=== PATIENT | female | born 1945 | race Caucasian/White ===

== ENCOUNTER 2019-10-30 19:21 | Observation (INO) | payer OTHER, SELFPAY ==
[2019-10-30] VITALS (7 sets, daily range): BP systolic 134–158; BP diastolic 56–118; PULSE 84–94; RESP 16–24; TEMP 36.6–36.7; O2SAT 93–99; BMI 32.4
--- NOTE | ~2019-10-30 | MR_ITS ---
EXAMINATION: MR brain/brain stem wo/w con DATE: 10/31/2019 13:28 INDICATION: Left-sided weakness TECHNIQUE: Magnetic resonance imaging (MRI) of the brain and brainstem was performed without and with intravenous contrast. Sequences included sagittal and axial T1-weighted SE, axial diffusion-weighted FS EPI ASSET, axial T2*-weighted GRE, axial T2-weighted FLAIR Propeller, and axial T2-weighted Prope ller. Postcontrast axial and coronal T1-weighted SE was obtained. Apparent diffusion coefficient (ADC ) maps were created. COMPARISON: None. CONTRAST: Multihance, 15 cc FINDINGS: There are no areas of restricted diffusion to suggest acute infarction. There is no acute h emorrhage seen on the T2*, a hemosiderin sensitive sequence. The ventricles are normal in size. There are no extra-axial collections. Flow voids are seen in the cerebral arteries on the T2-weighted sequ ences consistent with their expected patency. Visualized orbits and soft tissues are unremarkable. Th ere are scattered areas of nonspecific increased T2-weighted signal intensity in the cerebral white m atter. There are no areas of abnormal enhancement on the post contrast images. IMPRESSION: 1. No acute findings. 2. Age related findings. Reviewed, dictated and finalized at location A.
--- NOTE | ~2019-10-30 | CT_ITS ---
EXAMINATION: CTA brain carotid EXAM DATE: 10/30/2019 22:03 INDICATION: Left hemiparesis, left facial droop. TECHNIQUE: Spiral CTA of the carotid arteries was performed with intravenous injection 100 cc of Om nipaque 350. Axial, coronal, sagittal reformatted images reviewed. Additional reformatted images cre ated on dedicated 3-D workstation. NASCET comparable standard used to assess the degree of arterial stenosis. Spiral CT angiogram cerebral arteries performed with the same intravenous injection of con trast. Source images of the brain CTA transferred to dedicated workstation for 3-D rotational image c reation. Coronal, sagittal maximum intensity pixel images also reviewed. The dose-length product (D LP) for this examination was 1102.26 mGy-cm. The exposure was tailored according to patient size, a nd iterative reconstruction (ASIR) was used as additional dose reduction technique. Correlation is ma de to noncontrast head CT same date. FINDINGS: There is mild bilateral carotid bulb plaque with 0% stenosis bilaterally. Mild bilateral ca rotid siphon plaque without stenosis. The vertebral arteries are codominant. There is no carotid or vertebral basilar arterial dissection or fibromuscular dysplasia. There are no cerebral artery aneury sms. There is symmetric cerebral artery arborization. The sagittal, transverse and sigmoid sinuses en bolivar normally, no venous sinus thrombosis. Internal cerebral veins also enhance normally. IMPRESSION: 1. No cervical arterial dissection or cerebral artery aneurysm. 2. Mild bilateral carotid bulb plaque with 0% stenosis bilaterally. Reviewed, dictated and finalized at location A.
--- NOTE | ~2019-10-30 | XR_ITS ---
EXAMINATION: XR chest 1V portable EXAM DATE: 10/30/2019 20:13 INDICATION: Left-sided hemiparesis. Fell off couch. TECHNIQUE: Portable AP frontal chest x-ray was obtained. Comparison is made to prior examination from 10/30/2018. FINDINGS: The lungs are clear. There are no pleural effusions. Cardiac silhouette is prominent but magnified on this AP technique. There is no pneumothorax suspected. The bones are osteopenic. The re are bony degenerative changes. IMPRESSION: No acute cardiopulmonary findings. Reviewed, dictated and finalized at location A.
--- NOTE | ~2019-10-30 | CT_ITS ---
EXAMINATION: CT brain wo con EXAM DATE: 10/30/2019 19:48 INDICATION: Weakness. Stroke protocol. TECHNIQUE: Spiral CT of the head was performed without contrast. Axial, coronal and sagittal images were reviewed. The dose-length product (DLP) for this examination was 605.33 mGy-cm. The exposure w as tailored according to patient size, and iterative reconstruction (ASIR) was used as additional dos e reduction technique. There is no prior study for comparison. FINDINGS: There is no acute intraparenchymal hemorrhage. No evidence of intraparenchymal brain mass lesion. No evidence of acute infarction. Please note that initial head CT has limited sensitivity f or small or acute infarctions. There is mild periventricular and subcortical hypodensity, nonspecific but probably related to small vessel ischemic disease. There is prominence of the sulci and ventri cles related to cerebral atrophy. There is intracranial carotid arteriosclerosis. There are no ext ra-axial collections. There is no mass effect or midline shift. Patient eyes are looking to the rig ht. Soft tissue is unremarkable. The visualized sinuses and mastoid air cells are well aerated. IMPRESSION: 1. No acute intracranial findings. 2. Chronic age related findings. As per stroke protocol, I called these results, discussed with Migel Costello MD at 10/30/2019 19:50 C DT. Reviewed, dictated and finalized at location A. IMPRESSION: 1. No acute intracranial findings. 2. Chronic age related findings. As per stroke protocol, I called these results, discussed with Karol Hill at 10/30/2019 19:50 CDT.
--- NOTE | 2019-10-30 19:40 | PC.NURSE ---
RN to PT's rm. PT staring off to the Right side. RN asks pt what her name is. pt states Candida. pt states I think I am having another stroke Pt has facial droop on the L side and no strength to the L hand. Blood Glucose 115. predatory animal exterminator notified and CT called for pt arrival.
--- NOTE | 2019-10-30 19:40 | ECG_ITS ---
Measurements Intervals Endeavor Rate: 95 P: 138 CO: 206 QRS: -29 QRSD: 93 T: 154 QT: 321 QTc: 404 Interpretive Statements SINUS RHYTHM LEFT VENTRICULAR HYPERTROPHY AND ST-T CHANGE BORDERLINE R WAVE PROGRESSION, ANTERIOR LEADS BORDERLINE T WAVE ABNORMALITY- INFERIOR LEADS BASELINE ARTIFACT- I, II, III, AVR, AVL BORDERLINE ECG Electronically Signed On 10-31-2019 7:28:54 CDT by Gerhard Trevino D.O.
[2019-10-30 19:44] LABS: Glucose Point of Care 115 (65-105)
--- NOTE | 2019-10-30 19:54 | ED.WEAKNESS ---
HPI - Weakness General Chief complaint: Weakness Stated complaint: left side weakness Time Seen by Provider: 10/30/19 19:27 Source: patient, family and EMS Mode of arrival: EMS Limitations: no limitations History of Present Illness HPI Narrative: Patient is a 74-year-old female with a history of hypertension who presents for evaluation of left-sided weakness. Per her , approximately 2 hours ago, his reported to him that she did not feel well, and something was wrong. He noticed that the patient was leaning to the left, water that she was drinking was coming out the left side of her mouth. She was unable to move her left arm. EMS was called, patient was transported to our facility for assessment. At the time of assessment, patient is nauseated, she is denying any pain. She is moving all extremities. She reports some left-sided facial weakness. She denies headache or vision changes. Patient is not on any anticoagulation. Per , pt recently diagnosed with a UTI, started on antibiotic yesterday at PCP office. Related Data Allergies Allergy/AdvReac Type Severity Reaction Status Date / Time PHI Inhibitors Allergy Unknown unknown Verified 10/29/19 14:06 adhesive tape Allergy Unknown Rash Verified 10/29/19 14:06 amoxicillin Allergy Unknown Hives Verified 10/29/19 14:06 ARB-Angiotensin Receptor Allergy Unknown unknown Verified 10/29/19 14:06 Antagonist aspirin Allergy Unknown stomach Verified 10/29/19 14:06 pain losartan Allergy Unknown sweats Verified 10/29/19 14:06 Penicillins Allergy Unknown Skin Verified 10/29/19 14:06 irritation ramipril Allergy Unknown cough Verified 10/29/19 14:06 Review of Systems Review of Systems: Narrative: CONSTITUTIONAL: Denies fever CARDIOVASCULAR: Denies chest pain RESPIRATORY: Denies cough or dyspnea. GASTROINTESTINAL: Denies abdominal pain SKIN: Denies rash MUSCULOSKELETAL: Denies back pain NEUROLOGIC: Denies headache, reports left sided facial weakness PMFSH Past Medical History Medical History Amaurosis fugax Anxiety Essential hypertension GERD without esophagitis Hypertensive heart disease without heart failure (06/21/16) Mixed hyperlipidemia Postherpetic neuralgia PTSD (post-traumatic stress disorder) Renal insufficiency Thyroid nodule Trigeminal neuralgia Social History Social History Smoking status: Never smoker Second hand tobacco smoke exposure: No Smoking end date: 04/08/78 Alcohol intake: current Exam Narrative: Exam Narrative: GENERAL: Awake, alert, conversant HEAD: Normocephalic, atraumatic. EYES: PERRLA and EOMI. ENT: Nares clear, no rhinorrhea or epistaxis. Mucous membranes moist. NECK: Supple. CHEST: No respiratory distress, breathing even and non labored HEART: Regular rate, sinus rhythm ABDOMEN:Non distended, non tender EXTREMITIES: Normal range of motion. No edema. SKIN: Warm, dry, no rash. NEURO:No focal deficits. Alert and oriented x3. Finger to nose intact bilaterally. EOMs intact without nystagmus. Mild left-sided facial droop. Grimace is asymmetric. Intact sensation in face. Hearing intact bilaterally. Shoulder shrug intact. Strength 5/5 bilateral upper extremities. Strength 5/5 bilateral lower extremities. Reflexes 2+ patellar. Heel to gee intact bilaterally. Ambulatory exam deferred. Course Vital Signs Vital signs: Vital Signs Pulse Rate 84 10/30/19 19:28 Respiratory Rate 10/30/19 19:28 Blood Pressure 158/71 H 10/30/19 19:28 Pulse Oximetry 94 10/30/19 19:28 Pulse Rate 93 10/30/19 19:30 Respiratory Rate 10/30/19 19:28 Blood Pressure 158/71 H 10/30/19 19:28 Pulse Oximetry 94 10/30/19 19:28 MDM - Weakness MDM Narrative Medical decision making narrative: Patient presented for evaluation of possible stroke given left-sided weakness noted by and EMS in the fi
[2019-10-30 20:03] LABS: Basophils Absolute Auto 0.1 K/mm3 (0.0-0.1); Basophils Percent Auto 0.9 % (0.2-1.2); Eosinophils Absolute Auto 0.1 K/mm3 (0-0.3); Hematocrit 40.2 % (37.0-47.0); Hemoglobin 13.6 g/dL (12.0-15.0); Immature Granulocyte Absolute 0.04 K/mm3 (0.00-0.031); Immature Granulocyte Percent A 0.5 % (0-0.5); Lymphocytes Absolute Auto 2.38 K/mm3 (0.9-3.2); Lymphocytes Percent Auto 29.9 % (18.3-44.2); Mean Corpuscular HGB Conc 33.8 g/dl (32-36); Mean Corpuscular Hemoglobin 32.1 pg (26-34); Mean Corpuscular Volume 94.8 fl (80-100); Mean Platelet Volume 9.5 fl (7.4-10.4); Monocytes Absolute Auto 0.5 K/mm3 (0.1-0.6); Monocytes Percent Auto 6.8 % (2.6-8.5); Neutrophils Absolute Auto 4.9 K/mm3 (1.3-6.7); Neutrophils Percent Auto 60.9 % (45.5-73.1); Platelet Count Result 285 k/mm3 (150-375); Red Blood Count 4.24 M/mm3 (4.2-5.4); Red Cell Distribution Width 13.3 % (11.5-14.5)
[2019-10-30] MEDS: SODIUM CHLORIDE 0.9% IV 1,000 ML 999 ML IV CONT (20:05)
[2019-10-30] MEDS: ONDANSETRON INJ 4 MG/2 ML VIAL IV PUSH (20:05)
[2019-10-30 20:14] LABS: Anion Gap 12.7 mmol/L (7-16); Blood Urea Nitrogen 16 mg/dL (7-17); Calcium 8.8 mg/dL (8.4-10.2); Carbon Dioxide 24 mmol/L (22-30); Chloride 107 mmol/L (98-107); Estimated Glomerular Filt Rate > 60; Glucose 118 mg/dL (65-105); INR 0.9; Potassium 3.7 mmol/L (3.4-5.0); Prothrombin Time 12.2 Seconds (11.1-14.7); Sodium 140 mmol/L (137-145)
[2019-10-30 20:16] LABS: Partial Thromboplastin Time 29.4 SECONDS (22.3-36.8)
[2019-10-30 20:25] LABS: Troponin I < 0.012 ng/mL (0.000-0.034)
[2019-10-30 20:56] LABS: Add Urine Microscopic? YES; Appearance Urine Clear (Clear); Bilirubin Urine Negative (Negative); Blood Urine 2+ (Negative); Color Urine Straw (Yellow); Glucose Urine UA Negative (Negative); Ketones Urine Trace mg/dL (Negative); Leukocyte Esterase Ur Negative LEU/UL (Negative); Mucus Urine Rare /lpf; Nitrate Urine Negative (Negative); Protein Urine 1+ mg/dL (Negative); RBC Urine 51-75 /hpf (0-2); Specific Grav Ur 1.014 (1.001-1.035); Urobilinogen Urine Negative mg/dL (<2.0)
--- NOTE | 2019-10-30 21:52 | PC.NURSE ---
pt to radiology
--- NOTE | 2019-10-30 22:51 | ADMGEN ---
This patient, Candida Guthrie, was admitted to 3 [facility] Surg Room 305-01. Patient/family oriented to hospital policies and general routines including ID bracelet, bed and alarms, visiting hours, pain management, procedures, bathroom and other care routines, personal items, smoking policy, room service/diet, and visiting hours. Valuables list has been completed. Information on how to activate the Rapid Response Team has been discussed. Patient/Family are encouraged to report perceived risks to care and to ask questions if they do not understand what they are told or what they should do.
[2019-10-30 23:51] LABS: Troponin I < 0.012 ng/mL (0.000-0.034)
[2019-10-31] VITALS (9 sets, daily range): BP systolic 128–158; BP diastolic 53–62; PULSE 68–105; RESP 20; TEMP 36.6–36.8; O2SAT 94–96
--- NOTE | 2019-10-31 | ECHO_ITS ---
Patient Info Name: Candida Guthrie Age: 74 years : 1945 Gender: Female Ht: 63 in Wt: 182 lbs BSA: 1.95 m2 HR: 84 bpm BP: 125 / 53 mmHg Heart Rhythm: Sinus Rhythm Technical Quality: Good Exam Date: 10/31/2019 6:57 AM Exam Location: [facility] Pulmonary Patient Status: Outpatient Admit Date: 10/30/2019 Staff Ordering Physician: Vandana Ding MD Coffee Grower: Michelle Glover RDCS Attending Provider: Chanelle Saenz PA-C Referring Physician: Toña BOYD; Exam Type: CA echo doppler color flow Study Info Complete two-dimensional, color flow and Doppler transthoracic echocardiogram is performed. Summary 1. Left ventricular systolic function is normal, estimated at 60-65%. 2. There is no increased left ventricular wall thickness. 3. The left ventricular diastolic function is grade I diastolic dysfunction. 4. Bubble study not performed. No clear shunt with color flow Doppler noted. Repeat with bubble study if clinically indicated. 5. There is no aortic valve stenosis. 6. There is trace mitral valve regurgitation. 7. There is trace tricuspid valve regurgitation. 8. No pulmonary hypertension, estimated pulmonary arterial systolic pressure is 29 mmHg. Recommendations * Consider transesophageal echocardiogram if clinically indicated. Left Ventricle Left ventricular chamber dimension is normal. Left ventricular systolic function is normal, estimated at 60-65%. There is no increased left ventricular wall thickness. The left ventricular diastolic function is grade I diastolic dysfunction. Right Ventricle Right ventricular chamber dimension is normal. Right ventricular systolic function is normal. Left Atria Left atrial chamber dimension is normal. Right Atria Right atrial chamber dimension is normal. Atrial Septum Bubble study not performed. No clear shunt with color flow Doppler noted. Repeat with bubble study if clinically indicated. Aortic Valve The aortic valve is not well visualized. There is no aortic valve stenosis. There is no aortic valve regurgitation. Pulmonic Valve The pulmonic valve is not well visualized. There is mild pulmonic regurgitation. Mitral Valve The mitral valve has thickened leaflets. There is trace mitral valve regurgitation. The mitral valve annulus is mildly calcified. Tricuspid Valve The tricuspid valve leaflets are normal. There is trace tricuspid valve regurgitation. No pulmonary hypertension, estimated pulmonary arterial systolic pressure is 29 mmHg. Pericardium/Pleural The pericardium appears normal. There is trivial pericardial effusion. Inferior Vena Cava Normal inferior vena cava with >50% collapse upon inspiration consistent with normal right atrial pressure, 5 mmHg. Aorta The aortic root size at the sinus of Valsalva is normal. Left Ventricular Outflow Tract Name Value Normal LVOT 2D LVOT Diameter 2.1 cm LVOT Doppler LVOT Peak Gradient 4 mmHg LVOT Mean Gradient 1 mmHg LVOT VTI 19 cm LVOT VTI/AV VTI Ratio
[2019-10-31] MEDS: amLODIPine BESYLATE 5 MG TABLET 10 MG PO (08:02)
[2019-10-31] MEDS: MONTELUKAST SODIUM 10 MG TABLET PO (08:03)
[2019-10-31] MEDS: SACCHAROMYCES BOULARDII 250 MG CAPSULE PO ×2 (09:03→17:34)
[2019-10-31] MEDS: NITROFURANTOIN MONOHYD MACROCR 100 MG CAP PO ×2 (09:03→17:35)
[2019-10-31 09:38] LABS: Cholesterol 256 mg/dL (0-200); HDL Direct 88 mg/dL; Triglycerides 110 mg/dL (<150)
[2019-10-31 09:52] LABS: LDL Cholesterol Direct 135 mg/dL
--- NOTE | 2019-10-31 14:51 | PM.IMHP ---
H&P: HPI History of Present Illness Chief complaint: CVA Narrative: Candida Guthrie is a 74 year old female with a history of asthma, high blood pressure, who presented to the emergency room after an episode of numbness, tingling, weakness to her left arm, leg with a left facial droop. The patient said she was standing up in the kitchen cooking around 5:30 p.m. when she suddenly felt numbness and tingling to her left toes that then began to radiate into her left leg, left arm. The patient states that her symptoms went away fairly quickly but then she had a 2nd episode with similar symptoms that caused her to become more concerned. She was off balance but walked in to her living room where her was and was able to sit on the couch. While sitting on the couch she became unsteady and slowly felt her left side and onto the floor. She did hit her head on the floor but denies any pain or trauma associated with that. She was in trying to take 2 baby aspirins and while she was drinking the water it slid down her left cheek. patient's stated that he did notice her to have some slurred speech during this time. She did report some associated nausea and an episode of vomiting. 911 was called and she states her symptoms were resolving upon arrival to the emergency room. While she was in the emergency room a 3rd episode occurred. Since being up on the floor she has been feeling back to normal but she recently came back from her MRI about 30 minutes ago and noticed that her left arm and leg were heavy and wobbly. She also reports feeling pretty foggy and off since everything that happened yesterday. Patient also reports a slight right frontal headache but she believes it is because she has not had much caffeine today as she normally drinks. She denies any chest pain, shortness of breath, cough, fever, chills, abdominal pain, diarrhea, constipation, leg swelling, calf pain, palpitations, neck pain, back pain, or any other symptoms at this time. The patient was having some dysuria and frequent urination which began on Saturday (4 days ago) and she would her primary care provider who diagnosed her with a UTI and started her on Macrobid twice daily. Since starting Macrobid she reports some improvement to her urinary symptoms. Initial vitals on arrival showed a temperature of 97.9?, blood pressure 130/66, heart rate 86, respiratory rate 18, oxygen saturation 98% on room air. Initial labs showed normal CBC with differential, normal coag panel, normal BMP other than slightly elevated glucose at 118. Troponins were negative x2. Urinalysis showed 2+ blood, 51-75 RBCs, and 4-6 wbc's which appears to be improving UTI. CT head showed no acute intracranial findings, just chronic age-related findings. Chest x-ray shows no acute cardiopulmonary findings. CTA head and neck showed no cervical arterial dissection or cerebral arterial aneurysm. Mild bilateral carotid bulb plaque with 0% stenosis bilaterally. The patient was admitted into the hospital for further stroke workup which includes an MRI, echocardiogram, telemetry monitoring, and a consult to Neurology. Code status: full code POA: : Twin Guthrie PCP: Dr. Monte Review of Systems Review of Systems: All systems reviewed & are unremarkable except as noted in HPI and below PMFSH Past Medical History Medical History (Updated 10/31/19 @ 16:36 by Chanelle Saenz PA-C) Amaurosis fugax Anxiety Asthma Essential hypertension GERD without esophagitis Hypertensive heart disease without heart failure (06/21/16) Mixed hyperlipidemia Postherpetic neuralgia PTSD (post-traumatic stress disorder) Renal insufficiency Thyroid nodule Trigeminal neuralgia Surgical History Surgical History Hx of tubal ligation Family History Family History Sibling Family history of flakito
--- NOTE | 2019-10-31 15:11 | WPDNEURCNPN ---
Assessment and Plan Assessment and plan (1) Acute CVA (cerebrovascular accident): Code(s): I63.9 - Cerebral infarction, unspecified Status: Acute (2) Trigeminal neuralgia: Code(s): G50.0 - Trigeminal neuralgia Status: Acute (3) Renal insufficiency: Code(s): N28.9 - Disorder of kidney and ureter, unspecified Status: Acute (4) Postherpetic neuralgia: Code(s): B02.29 - Other postherpetic nervous system involvement Status: Acute (5) PTSD (post-traumatic stress disorder): Code(s): F43.10 - Post-traumatic stress disorder, unspecified Status: Acute (6) Mixed hyperlipidemia: Code(s): E78.2 - Mixed hyperlipidemia Status: Acute (7) Hypertensive heart disease without heart failure: Onset Date: 06/21/16 Code(s): I11.9 - Hypertensive heart disease without heart failure Status: Acute (8) GERD without esophagitis: Code(s): K21.9 - Gastro-esophageal reflux disease without esophagitis Status: Acute (9) Essential hypertension: Code(s): I10 - Essential (primary) hypertension Status: Acute (10) Anxiety: Code(s): F41.9 - Anxiety disorder, unspecified Status: Acute (11) Amaurosis fugax: Code(s): G45.3 - Amaurosis fugax Status: Acute Additional Plan if the patient's MRI of the brain shows an acute stroke than considering that she is intolerant or allergic to aspirin the Plavix can be initiated I discussed this with the hospitalist I will also add echocardiogram with bubble study and I will be happy to follow Consult date: 10/31/19 Time Seen: 14:30 HPI: Candida Guthrie is a 74 year old female She is right-handed and was admitted with rather acute onset of the left-sided weakness from which she mostly has improved except the left lower extremity started with the paresthesias affecting the left side and translated into generalized weakness initial CT brain was negative the results of the MRI are pending the echocardiogram performed which is unremarkable CTA of the brain and carotid is unremarkable the patient claims that she has either allergic to or intolerant to aspirin She denies any headache nausea vomiting chest pain shortness of breath fever chills or sore throat Review of Systems Review of Systems: All systems reviewed & are unremarkable except as noted in HPI and below PMFSH Past Medical History Medical History Amaurosis fugax Anxiety Essential hypertension GERD without esophagitis Hypertensive heart disease without heart failure (06/21/16) Mixed hyperlipidemia Postherpetic neuralgia PTSD (post-traumatic stress disorder) Renal insufficiency Thyroid nodule Trigeminal neuralgia Family History Family History Sibling Family history of lung cancer Patient's brother is in good health Family history of heart disease in male family member before age 55 Patient's sister is Patient's brother is Family history of malignant neoplasm of cervix Father Family history of lung cancer Patient's father is Mother Family history of malignant neoplasm of uterus Patient's mother is Family history of malignant neoplasm Family history of malignant neoplasm of cervix Social History Social History Smoking status: Former smoker Second hand tobacco smoke exposure: No Smoking end date: 04/08/78 Alcohol intake: never Substance use: never Gender identity (if verbalized by the patient): Female Sexual Orientation (if Verbalized by the Patient): Straight or Heterosexual Spiritual care concerns: No Meds Home Medications and Allergies Home Medications Medication Instructions Recorded Confirmed Type amlodipine 10 mg tablet 10 mg PO DAILY #90 tablet 05/08/19 10/30/19 Rx montelukast 10 mg tablet
[2019-10-31] MEDS: ATORVASTATIN 40 MG TABLET PO (21:56)
[2019-10-31] MEDS: ACETAMINOPHEN 325 MG TABLET 650 MG PO (21:56)
[2019-11-01] VITALS: PULSE 73
[2019-11-01 04:00] VITALS: PULSE 67
[2019-11-01 06:00] VITALS: BP 136/64; PULSE 83; RESP 20; TEMP 36.7; O2SAT 97
[2019-11-01 08:00] VITALS: PULSE 85
[2019-11-01] MEDS: CLOPIDOGREL BISULFATE 75 MG TABLET 150 MG PO (09:27)
[2019-11-01] MEDS: NITROFURANTOIN MONOHYD MACROCR 100 MG CAP PO (09:27)
[2019-11-01] MEDS: SACCHAROMYCES BOULARDII 250 MG CAPSULE PO (09:27)
[2019-11-01] MEDS: MONTELUKAST SODIUM 10 MG TABLET PO (09:28)
[2019-11-01] MEDS: amLODIPine BESYLATE 5 MG TABLET 10 MG PO (09:28)
[2019-11-01] MEDS: PANTOPRAZOLE 40 MG TABLET PO (09:28)
--- NOTE | 2019-11-01 10:23 | PM.DS ---
DS: Admitting Diagnosis Admitting Diagnosis Admitting Diagnosis: Cerebral infarction, unspecified DS: Discharge Diagnosis Discharge Diagnosis (1) Left-sided weakness: Code(s): R53.1 - Weakness Status: Acute Assessment and Plan: patient came in with left-sided weakness which has been intermittent since prior to arrival. Echocardiogram was ordered which shows left ventricle systolic function is normal at 60-65%, no increased LV wall thickness, diastolic dysfunction grade 1. Bubble study was not performed so the neurologist will order a limited echocardiogram with a bubble study. MRI was ordered and shows no acute CVA or old CVA. I talked to the neurologist, Dr. Caballero, who recommended starting her on Plavix and have her follow up with PCP and she can follow up with him as an outpatient in a few months. physical and occupational therapy have evaluated her and she is doing well and discontinued further therapy orders since she is at her baseline. patient was started on a statin medication as well at discharge for uncontrolled hyperlipidemia. The patient understands and agrees with the plan and is ready for discharge at this time since she is feeling back to baseline without any concerns or issues today. (2) Essential hypertension: Code(s): I10 - Essential (primary) hypertension Status: Acute Assessment and Plan: the patient's blood pressure this morning was 136/64 which is within normal range. Continue her amlodipine for blood pressure control (3) Mixed hyperlipidemia: Code(s): E78.2 - Mixed hyperlipidemia Status: Acute Assessment and Plan: Fasting lipid panel was ordered which showed that her total cholesterol was elevated at 256, LDL was elevated at 135, triglycerides were normal at 110 an HDL was within normal range at 88. Due to her possible stroke and some mild plaque seen to her carotid arteries her LDL should be less than 70 to trying prevent further plaque buildup and strokes in the future. Will start her on atorvastatin 40 mg HS tonight. Have her recheck a fasting lipid panel in 6 weeks with her primary care provider. (4) Asthma: Code(s): J45.909 - Unspecified asthma, uncomplicated Status: Acute Assessment and Plan: Patient states she was recently diagnosed with asthma and we will continue her on her inhaler as needed for shortness of breath and montelukast. At this time she is resting comfortably on room air and her lungs are clear to auscultation (5) UTI (urinary tract infection): Code(s): N39.0 - Urinary tract infection, site not specified Status: Acute Assessment and Plan: patient was being treated for urinary tract infection which was diagnosed on ( 2 days ago) Patient still having some slight dysuria and abdominal discomfort but states it is much improved after starting antibiotics. continue Macrobid twice daily for treatment of UTI DS: Summary Hospital Course Reason for hospitalization: Candida Guthrie is a 74 year old female with a history of asthma, high blood pressure, who presented to the emergency room after an episode of numbness, tingling, weakness to her left arm, leg with a left facial droop which occurred prior to arrival. The patient was having some dysuria and frequent urination which began on Saturday (4 days ago) and she would her primary care provider who diagnosed her with a UTI and started her on Macrobid twice daily. Since starting Macrobid she reports some improvement to her urinary symptoms. Initial vitals on arrival showed a temperature of 97.9?, blood pressure 130/66, heart rate 86, respiratory rate 18, oxygen saturation 9
== END 2019-11-01 11:20 | disposition home or self-care (01) ==
LOC: ANHED 20:51 → ANH3MEDSUR 21:30
PROVIDERS: Emergency Medicine; Physician Assistant; Admitting Provider Internal Medicine; Emergency Provider Emergency Medicine; PCP Family Medicine; Visit Provider Family Medicine
DX: R53.1 Weakness (principal); I11.9 Hypertensive heart disease without heart failure; E78.2 Mixed hyperlipidemia; J45.909 Unspecified asthma, uncomplicated; N39.0 Urinary tract infection, site not specified; B02.22 Postherpetic trigeminal neuralgia; K21.9 Gastro-esophageal reflux disease without esophagitis; F41.9 Anxiety disorder, unspecified; G45.3 Amaurosis fugax; Z87.891 Personal history of nicotine dependence; Z79.899 Other long term (current) drug therapy
CPT/HCPCS: 36415; 70450; 70496; 70498; 70553; 71045; 80048; 80061; 81001; 82948; 84484; 85025; 85610; 85730; 93005; 93306; 96361; 96374; 97110; 97116; 97161; 97165; 99285; A9270; A9577; G0378; J2405; J7030; Q9967

== ENCOUNTER 2019-11-18 12:23 | Outpatient (CLI) | payer OTHER, SELFPAY ==
--- NOTE | ~2019-11-18 | MM_ITS ---
EXAMINATION: MM screening arlei BI w iftikhar HISTORY: Screening TECHNIQUE: Craniocaudal and mediolateral oblique 3-D tomosynthesis images were obtained and synthetic 2-D images were generated. CAD analysis was submitted and interpreted. COMPARISON: Comparison to multiple prior studies sequentially, with oldest reviewed study dated 11/28. BREAST PARENCHYMAL COMPOSITION: There are scattered areas of fibroglandular density. FINDINGS: There is no evidence of suspicious mass, calcification, or architectural distortion to sugg est malignancy in either breast. There has been no suspicious interval change. IMPRESSION: 1. No mammographic evidence of malignancy. 2. Recommend routine screening mammography in one year. BI-RADS Category 1: Negative Reviewed, dictated and finalized at location A.
== END 2019-11-18 12:24 | disposition home or self-care (01) ==
LOC: ANHIMG 12:26
PROVIDERS: PCP Family Medicine; Visit Provider Family Medicine
DX: Z12.31 Encounter for screening mammogram for malignant neoplasm of breast (principal)
CPT/HCPCS: 77063; 77067

== ENCOUNTER 2019-11-25 10:00 | Outpatient (RCR) | payer OTHER, SELFPAY ==
--- NOTE | 2019-11-23 13:15 | PTOPEVAL ---
INITIAL PHYSICAL THERAPY EVALUATION and PLAN OF CARE Thank you for referring Candida Guthrie to [facility].? The patient is scheduled to be seen for therapy? 2x/week for 4 weeks. Please review, sign, date and return this plan of care AUGUSTUS. I agree with and certify that the following plan of care is medically necessary. Referring Physician Date Admitting Provider: Attending Provider: Lizzette Monte DO Referring Provider: *PT Outpatient Evaluation Start: 11/23/19 11:08 Freq: Status: Active Protocol: Document 11/23/19 11:10 BARBARA (Rec: 11/23/19 12:45 BARBARA [id number]) Therapy Assessment Status Assessment Status Assessment Status Evaluation Outpatient Past Medical History Past Medical History Source of Past Medical History Patient Neurological History Hx Transient Ischemic Attacks (TIA) Yes: October 30, 2019 Cardiovascular History Hx Hypercholesterolemia Yes Hx Hypertension Yes Respiratory History Hx Asthma Yes Gastrointestinal History Hx Gastrointestinal Disorders No Significant History Genitourinary History Hx Urinary Tract Infection Yes Musculoskeletal History Hx Arthritis Yes Hx Osteoporosis Yes Endocrine History Hx Endocrine Disorders No Significant History HEENT History Hx Cataracts Yes: surgery pending in the future Reproductive History Hx Tubal Ligation Yes: 1973 Other History Hx Other Medical Conditions Yes: LINNETTE'S 1990 Evaluation Information Problem Diagnosis L sided weakness Onset 10/30/2019 Subjective Information Candida reports that she was Query Text:As Reported By Patient/ in the kitchen checking on Family dinner - felt a rolling sensation up from her L foot all the way up to her head, then felt a 2nd rolling sensation. Did try to take 2 81 mg aspirin - but they rolled out her mouth - unable to get them down. got her to the sofa - but unable to maintain balance - went to the floor. Did call 911 - firefighters came - got her into ambulance - 02 in house - did vomit twice. Got to ED - CT scan done - nothing present. Presently - helping with grocery shopping, is returning to cooking, has
--- NOTE | 2019-11-30 09:20 | PCPTNOTE ---
Patient called & cancelled scheduled appointment this date due to having a MD appointment.
--- NOTE | 2019-12-09 11:22 | PCPTNOTE ---
PHYSICAL THERAPY DISCHARGE SUMMARY Admitting Provider: Attending Provider: Lizzette Monte, DO Patient:Candida Guthrie Date of :1945 Candida has not returned for any further treatments since 11/25/2019, therefore she will be discharged at this time. Patient?s initial visit was on 11/23/2019 11:00 and she had a total of 2 visits. The goals have been partially met. Follow up phone call made this date - Candida stated that had to cancel some appointments due to conflicting urology MD appointments. When she saw Dr. Monte the last time, the rest of the appointments were to have been cancelled. She is doing her HEP and has returned to some of her previous household and yard activities. Thank you for referring Candida to [facility]. Please review, sign, date and return this discharge summary AUGUSTUS. I have been updated about Candida's current status and I agree with discharge from the above service at this time. Referring Physician Date
== END 2019-12-10 09:02 | disposition home or self-care (01) ==
LOC: ANHHIPT 10:00
PROVIDERS: PCP Family Medicine; Visit Provider Family Medicine
DX: R53.1 Weakness (principal)
CPT/HCPCS: 97110; 97161

== ENCOUNTER 2020-06-15 09:59 | Outpatient (CLI) | payer OTHER, MEDICARE, SELFPAY | END 2020-06-15 10:00 | disposition home or self-care (01) | LOC: ANHCOVIDVC 09:59 | PROVIDERS: PCP Family Medicine | DX: Z23 Encounter for immunization (principal) | CPT/HCPCS: 0001A; 91300 ==

== ENCOUNTER 2020-07-06 10:00 | Outpatient (CLI) | payer OTHER, MEDICARE, SELFPAY | END 2020-07-06 10:01 | disposition home or self-care (01) | LOC: ANHCOVIDVC 10:01 | PROVIDERS: PCP Family Medicine | DX: Z23 Encounter for immunization (principal) | CPT/HCPCS: 0002A; 91300 ==

== ENCOUNTER 2021-06-15 09:53 | Outpatient (CLI) | payer OTHER, SELFPAY ==
--- NOTE | ~2021-06-15 | US_ITS ---
EXAMINATION: US carotid duplex BI EXAM DATE: 06/15/2021 10:26 INDICATION: H34.9 - Unspecified retinal vascular occlusion . TECHNIQUE: Grayscale, color and pulsed Doppler images of the cervical carotid arteries were obtained . The degree of vessel stenosis is placed in one of the following categories: normal, <50% stenosis, 50-69% stenosis, >=70% stenosis but less than near-occlusion, near-occlusion, or occlusion. Note that percent stenosis relative to normal distal artery lumen diameter is indirectly measured from velocit y measurements as described by Lonnie, et al. Radiology 2003; 229:340-346. Comparison is made to prior examination from 06/25/2016. FINDINGS: RIGHT SIDE: Right common carotid artery peak systolic velocity (PSV in cm/s): 155 Right bulb/internal carotid artery peak systolic velocity (PSV in cm/s): 144 Right internal carotid artery end diastolic velocity (EDV in cm/s): 14.5 Right ICA/CCA peak systolic ratio: 0.9 Right external carotid artery peak systolic velocity (PSV in cm/s): 144 Right vertebral artery antegrade flow: yes There is mild carotid bulb plaque with discordant mildly elevated velocity. Visually, less than 50% stenosis category. LEFT SIDE: Left common carotid artery peak systolic velocity (PSV in cm/s): 129 Left bulb/internal carotid artery peak systolic velocity (PSV in cm/s): 120 Left internal carotid artery end diastolic velocity (EDV in cm/s): 22.9 Left ICA/CCA peak systolic ratio: 0.9 Left external carotid artery peak systolic velocity (PSV in cm/s): 136 Left vertebral artery antegrade flow: yes There is mild carotid bulb plaque. Velocity and Doppler waveforms in the common and internal carotid arteries is normal. IMPRESSION: 1. Less than 50 percent stenosis in the right internal carotid artery. 2. Less than 50 percent stenosis in the left internal carotid artery. Reviewed, dictated and finalized at location A. INSTALLER
== END 2021-06-15 09:54 | disposition home or self-care (01) ==
PROVIDERS: PCP Family Medicine; Visit Provider Family Medicine
DX: H34.9 Unspecified retinal vascular occlusion (principal); Z86.73 Personal history of transient ischemic attack (TIA), and cerebral infarction without residual deficits; I65.23 Occlusion and stenosis of bilateral carotid arteries
CPT/HCPCS: 93880

== ENCOUNTER 2024-01-09 10:15 | Outpatient (RCR) | payer OTHER, SELFPAY ==
--- NOTE | 2023-12-04 19:52 | PTOPEVAL1 ---
Assessment and note entered by Latonia Russell, PT Evaluation Information Assessment Status Evaluation Diagnosis pain in right shoulder, pain in right elbow ICD-10 Condition Codes (PT) M25.511,M25.521,Weakness R53.1 Other ICD-10 Condition Codes ( abnormal posture PT) Onset 4-5 years Subjective Information Reports has been dealing with this 4-5 years. Reports had a stroke in 2020. Is using the robot'' vacuum instead of the big one because of the heft Hurts at night, elbow and shoulder and biceps hurt was not getting any rest. 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 Is currently on prednisone so feels better. Wanted to ask about braces to allow her to be able to do her activities. Reported Pain Level Pain Score 0,0: Self Report Additional Pain Score Comments When was not on the prednisone, resting pain level was a 4-5/10. would have to readjust arm in the evenings because couldn't get comfortable. Assessment PT Clinical Summary Pt presents for evaluation of right shoulder and elbow pain. Pt state she has had shoulder pain 4-5 years that has been progressing. Currently she is improved but reports this is after starting steroids. Pt had pain that ranged from 0/10 currently to at it's worst 10/10 in shoulder prior to medication. Pt reports would also have pain in elbow that would keep her up at night. Evaluation shows mild deficit in elbow ROM however has no reproduction of pain with elbow testing. Pt does have reproduction of shoulder pain and elbow pain with shoulder muscle testing. Pt also demo's decreased ROM of the right shoulder, thoracic spine, and decreased strength in the right shoulder. Signs and symptoms suggestive of right shoulder impingement with referred pain into right elbow. Pt was provided education on cryotherapy, and increased time was spent on temporary modification of her activities for more efficient and effective outcomes of therapy. Pt will benefit from therapy to address deficits, reduce pain, and return to PLOF without pain. Plan of Care Interventions Electrical Stimulation,Hot Pack/Cold Pack,Manual Therapy,Neuro Re-education,Patient/Caregiver Educati,Therapeutic Activities,Therapeutic Exercise,Self-Care/Home Management,Ultrasound PT Services Indicated Yes
--- NOTE | 2023-12-04 19:52 | OPREHPOC ---
Outpatient Therapy Plan of Care This is a Multidisciplinary Plan of Care that may contain components documented by all disciplines (PT, OT, and ST.) PT Goal 1 Goal / Goal Update Pt will be independent in HEP Pt will verbalize understanding of diagnosis and prognosis Target Visit 10 PT Problem 2 PT Problem #2 Pain PT Goal 1 Goal / Goal Update Pt will report greatest pain level at 3/10 or less to improve ADLs and activities Target Visit 10 PT Goal 2 Goal / Goal Update Pt will report resolution of pain to return to PLOF Target Visit 20 PT Problem 3 PT Problem #3 Impaired Range of Motion PT Goal 1 Goal / Goal Update Pt will demo 150 degrees RUE abduction passively Target Visit 10 PT Goal 2 Goal / Goal Update Pt will demo 150 degrees RUE abduction actively without pain Target Visit 20 PT Problem 4 PT Problem #4 Impaired Strength PT Goal 1 Goal / Goal Update Pt will demo RUE strength of 4-/5 in all tested planes Target Visit 10
--- NOTE | 2023-12-27 14:01 | PCPTNOTE ---
Patient called the morning of her appointment to inform office that she could not make it and she is feeling sick.
--- NOTE | 2024-01-09 10:39 | PTOPDC ---
Assessment and note entered by Latonia Russell, PT Evaluation Information Assessment Status Discharge Diagnosis pain in right shoulder, pain in right elbow ICD-10 Condition Codes (PT) M25.511,M25.521,Weakness R53.1 Other ICD-10 Condition Codes ( abnormal posture PT) Onset 4-5 years Subjective Information Pt reports has been feeling more tired than usual. Just isn't feel good overall. Pt reports is being more conscious of her arm. Is hard on herself and sometimes takes on projects that may be harder on her than she can handle. Reported Pain Level Pain Score 0,0: Self Report Assessment PT Clinical Summary Pt has attended therapy consistently for her right shoulder pain. She demo's improved ROM, improved range, reports improved function and significantly less pain. She is independent in her HEP and knows when to return to therapy if necessary in the future. Thus patient is being discharged at this time for completion of program. Plan of Care PT Services Indicated No
== END 2024-01-09 11:18 | disposition home or self-care (01) ==
LOC: ANHHIPT 10:15
PROVIDERS: PCP Physician Assistant Medical; Visit Provider Physician Assistant Medical
DX: M25.511 Pain in right shoulder (principal); M25.521 Pain in right elbow
CPT/HCPCS: 97014; 97035; 97110; 97140; 97161; 97530; 97750; G0283

== ENCOUNTER 2024-04-03 07:54 | Outpatient (CLI) | payer OTHER, SELFPAY ==
--- NOTE | ~2024-04-03 | MM_ITS ---
EXAMINATION: MM screening areli BI w iftikhar HISTORY: Screening TECHNIQUE: Craniocaudal and mediolateral oblique 3-D tomosynthesis images were obtained and synthetic 2-D images were generated. CAD analysis was submitted and interpreted. COMPARISON: 11/18/2019 and 03/12/2017 BREAST PARENCHYMAL COMPOSITION: FINDINGS: Bulky and punctate calcifications detected bilaterally, stable and benign in appearance, an d vascular in origin. Stable parenchymal pattern without suspicious microcalcifications, architectural distortion, discrete masses or significant asymmetry. IMPRESSION: 1. No mammographic evidence of malignancy. 2. Follow-up as per ACR/ACS guidelines is recommended. BI-RADS Category 2: Benign finding(s). Reviewed, dictated and finalized at location A. 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
--- NOTE | ~2024-04-03 | DEXA_ITS ---
Bone Density Report Name: MARV RIGGS Age: 79 Sex: Female Ethnicity: White Date of : 1945 Indication: osteopenia; monitoring treatment; height loss; Referring Provider: NICOLAS BALDERAS I. Study: Bone densitometry was performed. Exam Date: April 03, 2024 Accession number: [id number] Bone Density: Region BMD T-score Z-score Classification AP Spine(L1, L2, L3) 0.831 -1.7 0.9 Osteopenia Femoral Neck (Left) 0.550 -2.7 -0.4 Osteoporosis Total Hip (Left) 0.762 -1.5 0.5 Osteopenia Femoral Neck (Right) 0.698 -1.4 0.9 Osteopenia Total Hip (Right) 0.824 -1.0 1.0 Normal Total Hip Mean 0.793 -1.3 0.8 Osteopenia World Health Organization criteria for BMD impression classify patients as: Normal (T-score at or above -1.0), Osteopenia (T-score between -1.0 and -2.5), or Osteoporosis (T-score at or below -2.5). 10-year Fracture Risk: FRAX not reported because: Some T-score for Spine Total or Hip Total or Femoral Neck at or below -2.5 Treated for osteoporosis Previous Exams: Region Exam Age BMD T-score BMD Change BMD Change Date g/cm2 vs Baseline vs Previous AP Spine (L1-L3) 04/03/2024 79 0.831 -1.7 -0.071 (-7.9%) -0.071 (-7.9%) 05/10/2014 69 0.902 -1.1 Total Hip(Left) 04/03/2024 79 0.762 -1.5 0.037 (5.1%)# 0.037 (5.1%)# 05/10/2014 69 0.725 -1.8 Total Hip(Right) 04/03/2024 79 0.824 -1.0 0.035 (4.4%)# 0.035 (4.4%)# 05/10/2014 69 0.789 -1.3 *Denotes significance at 95% confidence level, LSC for AP Spine = 0.022 g/cm2, LSC for Total Hip = 0.027 g/cm2 # Denotes dissimilar scan types or analysis methods Clinical Information Provided by Patient: Is being treated for osteoporosis Has used the following medications: Vitamin D, Calcium Patient maximum height was 65 Menopause Age: 55 No regular weight bearing exercise Drinks caffeinated beverages Onset of menses at age 12 Number of children 3 Impression: The patient has osteoporosis, based on the Left Femoral Neck T-score. No significant bone loss was observed. Discussion: PATIENT UNDER TREATMENT WITH NO SIGNIFICANT BMD LOSS SINCE LAST EXAM. In an untreated patient, BMD typically declines with age. A lack of decline or gain is usually a sign that treatment is efficacious and fracture risk is reduced. It is important to ask patients whether they are taking their medications and to encourage continued and appropriate compliance with their osteoporosis therapies to reduce fracture risk. It is also important to review their risk factors and encourage appropriate calcium and vitamin D intakes, exercise, fall prevention and other lifestyle measures. Follow-Up: Consider a repeat BMD and Vertebral Fracture Assessment (VFA) exam in 2 years or sooner if medically necessary, to reassess this patient's status. Reported by: CATRACHITA on 04/03/2024 8:32:00 AM. Reviewed, dictated and finalized at location ACori GAY
== END 2024-04-03 07:55 | disposition home or self-care (01) ==
PROVIDERS: PCP Physician Assistant Medical; Visit Provider Physician Assistant Medical
DX: Z12.31 Encounter for screening mammogram for malignant neoplasm of breast (principal); E28.39 Other primary ovarian failure; M85.88 Other specified disorders of bone density and structure, other site; M81.0 Age-related osteoporosis without current pathological fracture; M85.852 Other specified disorders of bone density and structure, left thigh; M85.851 Other specified disorders of bone density and structure, right thigh
CPT/HCPCS: 77063; 77067; 77080